=== PATIENT | male | born 1985 | race Caucasian/White ===

== ENCOUNTER 2020-11-15 00:07 | Emergency (ER) | payer OTHER ==
[2020-11-15 00:32] VITALS: BP 126/69; PULSE 104; BMI 28.2
[2020-11-15] MEDS ORDERED: ACETAMINOPHEN 325 MG TABLET (FP) PO ONE ×2 (01:07→01:21)
[2020-11-15] MEDS ORDERED: ALBUTEROL SO4 HFA INHALER IH ONE ×2 (02:08→03:11)
[2020-11-15 02:41] LABS: THROAT:GRP A STREP Negative (Negative)
[2020-11-15 03:14] VITALS: TEMP 98.9
== END 2020-11-15 03:15 | disposition home or self-care (01) ==
LOC: JER 00:07
PROC: 3E0F7GC Introduction of Other Therapeutic Substance into Respiratory Tract, Via Natural or Artificial Opening (ICD-10-PCS; principal; 2020-11-15)
DX: J02.9 Acute pharyngitis, unspecified (principal)
CPT/HCPCS: 70360-TC-FY; 71046-TC-FY; 87070; 87804; 87880; 99284-25; C9803; U0003